=== PATIENT | male | born 1990 | race Caucasian/White ===

== ENCOUNTER 2024-08-31 17:33 | Inpatient (IN) | payer MEDICARE, MEDICAID ==
[2024-08-31] MEDS ORDERED: HALOPERIDOL LACTATE 5 MG/ML 1 ML VIAL IM PRN (17:50)
[2024-08-31] MEDS ORDERED: MAGNESIUM HYDROXIDE 2,400 MG/30 ML CUP PO PRN (17:50)
--- NOTE | 2024-09-01 01:03 | P.CONS ---
History of Present Illness - Reason for Consult Consult date: 09/01/24 medical comanagmeent - Chief Complaint psychosis - History of Present Illness Franco is a 33-year-old male with past medical history of polysubstance use tobacco use and schizophrenia He was in his usual state of health up until he had suicidal ideation. The patient reports that he had stabbed his left wrist. He was treated at [facility]. He had a tendon repair. He was then transferred here after he was medically stabilized. He is currently seen in room 312 in mental health unit. He reports that he has been having auditory hallucinations. He reports polysubstance use and uses heroin cocaine cannabis and methamphetamine. He otherwise is a poor historian at this time and appears to be incoherent with some of the story. There was no current lab work seen on chart review. Review of Systems ROS negative except for HPI Past Medical History Past Medical History: No Reported History History of Any Multi-Drug Resistant Organisms: None Reported Past Surgical History: No Surgical Hx Reported Past Psychological History: Bipolar, Schizophrenia Smoking Status: Vaper Past Alcohol Use History: None Reported Past Drug Use History: Marijuana Medications and Allergies Home Medications Medication Instructions Recorded Confirmed Type Divalproex ER [Depakote ER] 1,000 mg PO BID 30 Days #60 tab 11/10/22 Rx Ibuprofen [Motrin] 600 mg PO Q6HR PRN tab 11/10/22 Rx Nicotine 14Mg/24Hr Patch [Habitrol] 1 patch TRANSDERM DAILY 14 Days 11/10/22 Rx #14 patch Paliperidone [Invega] 6 mg PO HS 30 Days #30 tab 11/10/22 Rx fluPHENAZine decanoate [Prolixin 50 mg IM [id number] #1 each 11/10/22 Rx Decanoate] traZODone HCL [Desyrel] 100 mg PO HS 30 Days #30 tab 11/10/22 Rx Allergies Allergy/AdvReac Type Severity Reaction Status Date / Time No Known Allergies Allergy Verified 10/29/22 03:28 Physical Exam Vitals: Intake and Output 08/31/24 08/31/24 09/01/24 14:59 22:59 06:59 Other: Weight 81 kg General: non toxic, no distress, Derm: warm, dry Head: atraumatic, normocephalic, symmetric Eyes: EOMI, no lid lag, anicteric sclera, pupils equal round reactive to light ENT: Nose and ears atraumatic, no thrush, no pharyngeal erythema Neck: No thyromegaly, no cervical lymphadenopathy, trachea midline, supple Mouth: no lip lesion, mucus membranes moist Cardiovascular: S1S2 reg, no murmur, Lungs: clear to ascultation bilateral, no ronchi, no rales, no wheeze, no accessory muscle use Abdominal: soft, nontender to palpation, no guarding Ext: left forearm in splint Neuro: moving all extremeties psontansouly Psych: calm and coopeartive Assessment and Plan Assessment: #) Schziophrenia with psychosis, primary management as per behvaioral health team. check depakote level #) Polysubstance use- report uses cocaine, heroin, methamaphtime, and cannabis, recommend cessation #) Suicide attempt with wound inflication to left arm, s/p tendon repair. prn acetaminphen #) tobacco use, recommend cessaiton CBC CMP A1c lipid profile TSH urine drug screen and Depakote level pending at the time of this writing
[2024-09-01] MEDS: ACETAMINOPHEN TAB 325 MG TAB PO PRN (04:45)
[2024-09-01] MEDS: LORazepam 1 MG TAB PO PRN (04:45)
[2024-09-01] MEDS: NICOTINE 14MG/24HR PATCH TRANSDERM SCH (08:52)
[2024-09-01] MEDS: IBUPROFEN 600 MG TAB PO PRN (08:54)
[2024-09-01 09:25] LABS: Basophils # (A) 0.07 10*3/uL (0.00-0.10); Basophils % (A) 1.0 %; Eosinophils # (A) 0.16 10*3/uL (0.04-0.35); Eosinophils % (A) 2.2 %; HCT 42.6 % (39.6-50.0); HGB 14.4 g/dL (13.0-17.0); Lymphocytes # (A) 2.94 10*3/uL (0.90-5.00); Lymphocytes % (A) 39.9 %; MCH 33.3 pg (27.0-32.0); MCHC 33.8 g/dL (32.0-37.0); MCV 98.4 fL (80.0-97.0); Monocytes # (A) 0.53 10*3/uL (0.20-1.00); Monocytes % (A) 7.2 %; Neutrophils # (A) 3.63 10*3/uL (1.80-7.70); Neutrophils % (A) 49.3 %; Platelet Count 262 10*3/uL (140-440); RBC 4.33 10*6/uL (4.40-5.60); RDW 12.7 % (11.5-14.5); WBC 7.36 10*3/uL (4.50-10.00)
[2024-09-01 09:40] LABS: ALT 17 U/L (4-49); AST 21 U/L (17-59); African American GFR (CKD) >90 (>60 ml/min/1.73 sqM); Albumin 4.3 g/dL (3.5-5.0); Alkaline Phosphatase 47 U/L (38-126); Anion Gap 11 mmol/L; Blood Urea Nitrogen 12 mg/dL (9-20); Calcium 9.3 mg/dL (8.4-10.2); Carbon Dioxide 27 mmol/L (22-30); Chloride 100 mmol/L (98-107); Glucose 125 mg/dL (74-99); Non-African American GFR(CKD) >90 (>60 ml/min/1.73 sqM); Potassium 4.7 mmol/L (3.5-5.1); Sodium 138 mmol/L (137-145); Total Protein 6.5 g/dL (6.3-8.2)
--- NOTE | 2024-09-01 11:57 | P.HP ---
Psychiatric H&P - . H&P Date: 09/01/24 History & Physical: Allergies Allergy/AdvReac Type Severity Reaction Status Date / Time No Known Allergies Allergy Verified 10/29/22 03:28 Vital Signs Temp 98.2 F 08/31/24 22:16 Pulse 81 08/31/24 22:16 Resp 18 08/31/24 22:16 BP 121/81 08/31/24 22:16 Pulse Ox 98 08/31/24 22:16 FiO2 Intake & Output 08/31/24 09/01/24 09/01/24 18:59 06:59 18:59 Weight 81 kg 82.4 kg Dictation was produced using [employer] dictation software. Please excuse any grammatical, word or spelling errors. IDENTIFYING DATA: Patient is a 33 years old male presented from [facility] after suicidal attempt via cutting his wrist in context of medication noncompliance HPI: Patient presented to the hospital as a transfer from [facility], he was presented there on 08/28 after stabbing self in the left arm, having auditory hallucination, stopped using his medication 1 week ago. Reported insomnia, possible SI, patient is careless, detached about his wound. He had surgery on the wrist on 08/30, he has a soft volar splint he has a history of multiple suicide attempt. Per petition " the patient remains psychotic, he continues to hear voices after presenting to the ER following a deep laceration to his left wrist and attempt to escape the voices. Patient require further psychiatric evaluation and treatment." Per clinical certification " patient presented to the ED status post deep cut to left wrist. He states that he did so he could hear himself again. Patient states that the voices he is hearing are getting louder, making him upset and unable to think straight. He states that he stopped taking his psychotropic medication approximately 1 week prior to his arrival to the ED. Upon evaluation in the unit the patient was in his room, agreed to speak with the appeals writer in the office. He states that he was thinking about cutting himself, and he went too deep, states that he put a towel over it, and asked his friend to call 911. States that "just tired of life, people are not nice to me." States that he has been taking mediations for 15 yrs, and has been struggling with drugs, weed and alcohol, states that he has been using cocaine, meth, and heroin a week or so ago. States that "I don't see that as an issue since I'm not seeking the drugs." States that "I know that you are working on your PHD and I'll answer all of your questions." States that his mood is "strong," admitted to feeling down, sad, depressed for over 20 yrs, claims feeling hopeless, helpless and worthless, he denied any current SI/HI or self harm. Reported that he tried to end his life before 5-10 times, "just tired or high on drugs." He tried OD, robes, cars, swimming till he could not find a way out. He states that it started when he was a kid, and last attempt was cutting his wrist prior to this admission, he states that "there is an katiuska watching over me that is why I'm still here." States that "I think the [facility] will take over heaven." States that his sleep has been good, claims 5-8 hours of sleep at night, appetite is good. Pt admitted to racing thoughts, flights of ideas, risky behaviors, he is religiously preoccupied, has tangential thought process, illogical and non sensecal. States that he is "keeping my ear to the wind, when I ask the spirit, they give me an answer." Admitted to seeing and talking to spirit since he was a child, he denied seeing or hearing them now. States that he can build the spirit. States that he had voices when he injured himself, states that the voices told him that "you have a choice if you want to cut yourself" Patient admits to using different types of substances like cocain, meth, opiate with last use about a week or so ago, states that "I use one line few times a day". Admitted to using tobacco 1-2 PPD, reported using cannabis at times. Denied using alcohol. PAST PSYCHIATRIC HISTORY: - Inpatient Hospitalizations: Per chart review patient was hospitalized at [facility] in 10/2022. States that he was hospitalized 12-15 times in the past, last hospitalization was at [facility] couple of months ago - Outpatient Care: Reported that he follows up with Kianna Dejesus, was with [facility] in the past - Current Psychotropics: Patient reported that his current home medication i ncludes Buspar 5 mg tid, Depakote 500 mg po bid (patient requested the Depakene syrup), Zyprexa 15 mg po hs, Vilazodone 20 mg hs. States that he has been compliant with his medications - Prior Psychotropics/Therapy: Prolixin decanoate 50 mg IM 14 days unconfirmed dates, Depakote ER 1000 mg p.o. twice daily, Trileptal 300 mg 2 twice daily, Invega 6 mg p.o. twice daily - Prior Psychiatric diagnoses: Schizoaffective disorder, bipolar type, cannabis use disorder, nicotine use disorder, medication noncompliance - Suicidal Attempts: multiple times PMH: as per ER note ALLERGIES: as per EMR CHEMICAL DEPENDENCY HISTORY: as per HPI FAMILY PSYCHIATRIC/SUBSTANCE USE HISTORY: denies SOCIAL HISTORY: Patient was born and raised in [place], single, never , has one daughter 10 yo, he is on disability for mental illness, pay for child support, lives by himself, has no support, states that "even my mom is a liar." Reported being in detention 3 times in the past, denied having access to firearms, or guns. MENTAL STATUS EXAM: General Appearance: Patient appears to be stated age is alert, directable, and attempts to cooperate. Patient appears to have poor hygiene and grooming. He has a soft splint over his right forearm. Behavior: Patient is seated without any agitated behavior. Speech: Patient's speech is fluent and nonpressured. Mood/Affect: Patient reports their mood is "fine strong" affect is congruent and constricted. Suicidality/Homicidality: Patient denies having any homicidal ideation intent or plan. Denies any suicidal ideations intent or plan Perceptions: Patient reported seeing and hearing spirits which he has been having for a long time since he was a child Though content/process: There is no evidence of any delusional thought content and thought process is linear and goal-directed. Memory and concentration: AOX3, grossly intact for the purposes of this session. Judgment and insight: poor STRENGTHS/WEAKNESSES: strength is that patient is resilient. Weakness is that patient has poor judgment and is impulsive INTELLECT: average IMPRESSIONS: -Schizophrenia spectrum and other unspecified psychotic disorder -Rule out schizoaffective disorder versus bipolar disorder with psychotic feature, versus MDD with psychotic features, vs substance-induced -Anxiety disorder, unspecified -Cannabis use disorder -Nicotine use disorder -Cocaine use disorder -Opiate use disorder PLAN: -Patient is admitted under voluntary status to [facility] for stabilization of psychiatric symptoms and safety. Patient has signed adult voluntary form and medication consent and is placed in patient's chart. Initially the patient came in with petition and clinical certification however he agreed to follow our treatment recommendation and agreed to take medication. -Medications : -Start Invega 3 mg p.o. at bedtime (may consider switching to JAMES prior to discharge, patient agreed with the plan) -Hold Zyprexa -Continue Depakene 500 mg p.o. twice daily (patient would prefer Depakene syrup) -Continue BuSpar 5 mg p.o. 3 times daily -Will hold Vilazodone till we get outpatient records -Ativan and Haldol PRN for agitation/aggression -Patient was counselled on substance abuse and desired to cut back on use -Tan offer patient subtance use rehab, however patient does not consider rehab at this time, will continue to encourage patient to do so in the future -Patient was informed of the risks, benefits and side effects of the medication and patient verbally consented to taking the medications. Patient signed med consent form and was placed in chart. -Internal Medicine consult to perform medical evaluation and physical. -NRT - nicotine patch -SW on board for discharge planning. Encourage patient to participate in groups to work on coping skills. Collateral will be helpful from his outpatient team as well as his mother. 09/01/24 09:05 09/01/24 10:52
[2024-09-01 13:36] LABS: Cholesterol 124.00 mg/dL (0.00-200.00); HDL Cholesterol 35.30 mg/dL (40.00-60.00); LDL Cholesterol,Calculated 55.5 mg/dL (0.0-131.0); Triglycerides 166.00 mg/dL (0.00-149.00); VLDL Calculation 33.20 mg/dL (5.00-40.00)
[2024-09-01] MEDS: MAG HYDROX/AL HYDROX/SIMETH 355 ML BOTTLE PO PRN (14:22)
[2024-09-01] MEDS: PALIPERIDONE 3 MG TAB.ER.24 PO SCH (20:01)
[2024-09-01] MEDS: VALPROIC ACID ORAL SOLN 250 MG/5 ML CUP PO SCH (20:01)
--- NOTE | 2024-09-02 13:47 | P.PN ---
Progress Note - Text Progress Note Date: 09/02/24 Dictation was produced using [employer] dictation software. Please excuse any grammatical, word or spelling errors. Interval history: Patient was seen in the hallway and was directable and agreeable to speak with the racebook writer in the office for psychiatric follow-up. The patient states that he is doing well, states that "I'm smart enough for my own good, I'm the only one that can explain things." Patient seems to have grandiose behavior today. States that he slept well last night, reported that he had some dreams however he could not remember it. He admitted to good appetite. States that depression and anxiety are at the moderate side, he rated depression at 6/10, and anxiety at 5/10. He denied any current SI/HI or self harm, states that every time he look at his arm he get that fear of doing it again. He denied any current AVH, states that "no difference than an intelligent person would." He has been taking his medications, he denied any current side effects, denied any muscle stiffness, rigidity, abnormal movement, or delayed. States that he is in contact with his family, reported that he was talking to his mother prior to coming to the office, reported that things are going well with his mom. MENTAL STATUS EXAM: General Appearance: Patient appears to be stated age is alert, directable, and attempts to cooperate. Patient appears to have poor hygiene and grooming. He has a soft splint over his right forearm. Behavior: Patient is seated without any agitated behavior. He has grandiose behavior today, was talking about how smart he is and how he is different from other people. Speech: Patient's speech is fluent and nonpressured. Mood/Affect: Patient reports their mood is "good" affect is congruent and constricted. Suicidality/Homicidality: Patient denies having any homicidal ideation intent or plan. Denies any suicidal ideations intent or plan Perceptions: Patient denied any current auditory or visual hallucination today however seem to be conservative and guarded, paranoid at time with grandiose behavior Though content/process: There is no evidence of any delusional thought content and thought process is linear and goal-directed. Memory and concentration: AOX3, grossly intact for the purposes of this session. Judgment and insight: poor IMPRESSIONS: -Schizophrenia spectrum and other unspecified psychotic disorder -Rule out schizoaffective disorder versus bipolar disorder with psychotic feature, versus MDD with psychotic features, vs substance-induced -Anxiety disorder, unspecified -Cannabis use disorder -Nicotine use disorder -Cocaine use disorder -Opiate use disorder Assessment/Plan: -Patient continues to meet criteria for inpatient psychiatric admission for symptom stabilization and safety. Patient was admitted under voluntary status to [facility] for stabilization of psychiatric symptoms and safety. -Medications : -Continue Invega 3 mg p.o. at bedtime (may consider increasing the dose tomorrow with a plan to switching to JAMES prior to discharge, patient agreed with the plan) -Hold Zyprexa -Continue Depakene syrup 500 mg p.o. twice daily -Continue BuSpar 5 mg p.o. 3 times daily -Will hold Vilazodone till we get outpatient records -Ativan and Haldol PRN for agitation/aggression -Patient was informed of the risks, benefits and side effects of the medication and patient verbally consented to taking the medications, he denied any current side effects, denied any muscle stiffness, rigidity, abnormal movement, or drooling. -SW on board for discharge planning. Encourage patient to participate in groups to work on coping skills, encouraged to participate in the milieu. Collateral will be helpful from his outpatient team as well as his mother.
--- NOTE | 2024-09-03 11:43 | P.PN ---
Progress Note - Text Progress Note Date: 09/03/24 Interval History: Patient was seen wandering the hallways and was directable and agreeable to sp jose with television writer in the office. He displays some nondenominational preoccupation, grandiosity. He did admit to cutting himself due to experiencing "invasive suicidal ideations" at that time, he admitted to also having auditory hallucinations however friends performed an exorcism and he has no longer heard any voices. Patient does not feel as though ongoing substance use including methamphetamines, cocaine, and heroin could be contributing to his current symptoms, stating that he "got the good stuff that is not laced with anything and is pure." He displayed poor insight into his need for treatment, does not feel as though he needs medications however is agreeable with taking them. He states his lease is up at his place in the [place] and he plans on not renewing this and will be homeless. Patient does admit to suicidal ideations, no plan or intent. At this time patient denies any homicidal ideations, intent or plan. Patient denies any auditory, visual hallucinations and denies any paran oia or delusions. Patient denies any side effects from the medications and has been compliant with meds. Mental Status Exam: General Appearance: Patient appears to be stated age is alert, directable, and cooperative. He has a cast on his left arm Behavior: Patient is calmly seated without any agitated behavior. Speech: Patient's speech is fluent and nonpressured. Mood/Affect: Mood is improving mildly, affect is congruent and constricted. Suicidality/Homicidality: Patient denies having any homicidal ideation intent or plan. Patient reports suicidal ideations Perceptions: Patient denies any visual hallucinations and denies any auditory hallucinations Though content/process: There is evidence of nondenominational preoccupation, grandiose delusions Memory and concentration: AOX3, grossly intact for the purposes of this session Judgment and insight: Improving mildly Assessment Psychosis unspecified Rule out substance-induced psychotic disorder versus schizoaffective disorder bipolar type Stimulant use disorder Cannabis use disorder Opiate use disorder Nicotine dependence Plan: -Patient continues to meet criteria for inpatient psychiatric admission for symptom stabilization and safety. Patient has signed adult voluntary form and medication consent and was placed in patient's chart. -Medications: Increase Invega to 6 mg at bedtime for psychosis, increase BuSpar to 10 mg 3 times daily for anxiety, continue Depakene 500 mg twice daily for mood stabilization -When necessary Ativan and Haldol for agitation/aggression. -Labs: Reviewed -NRT - nicotine patch -SW on board for discharge planning. Encouraged the patient to participate in milieu. Anticipate discharge in ~2-3 days
[2024-09-03] MEDS: PALIPERIDONE 6 MG TAB.ER.24 PO SCH (20:46)
--- NOTE | 2024-09-04 12:22 | P.PN ---
Progress Note - Text Progress Note Date: 09/04/24 Interval History: Patient was seen in group and was directable and agreeable to speak with caption writer in the office. Patient has been attending groups. He reports improvement in terms of his anxiety with increasing the BuSpar. He states he is sleeping and eating well. He inquires about discharge and is on board with returning home tomorrow, states that he lives alone and that his mother will be able to pick him up. At this time patient denies any suicidal or homicidal ideations, intent or plan. Patient denies any auditory, visual hallucinations and denies any paranoia or delusions. Patient denies any side effects from the medications and has been compliant with meds. Mental Status Exam: General Appearance: Patient appears to be stated age is alert, directable, and cooperative. He has a cast on his left arm Behavior: Patient is calmly seated without any agitated behavior. Speech: Patient's speech is fluent and nonpressured. Mood/Affect: Mood is improving mildly, affect is congruent and constricted. Suicidality/Homicidality: Patient denies having any suicidal or homicidal id eation intent or plan. Perceptions: Patient denies any visual hallucinations and denies any auditory hallucinations Though content/process: There is no evidence of any delusional thought content and thought process is linear and goal-directed. Memory and concentration: AOX3, grossly intact for the purposes of this session Judgment and insight: Improving mildly Assessment Psychosis, unspecified Rule out substance-induced psychotic disorder versus schizoaffective disorder, bipolar type Stimulant use disorder Cannabis use disorder Opiate use disorder Nicotine dependence Plan: -Patient continues to meet criteria for inpatient psychiatric admission for symptom stabilization and safety. Patient has signed adult voluntary form and medication consent and was placed in patient's chart. -Medications: Continue Invega 6 mg at bedtime for psychosis, BuSpar 10 mg 3 times daily for anxiety, Depakene 500 mg twice daily for mood stabilization -When necessary Ativan and Haldol for agitation/aggression. -Labs: Reviewed, Depakote level ordered for tomorrow morning -NRT - nicotine patch -SW on board for discharge planning. Encouraged the patient to participate in milieu. Anticipate discharge home alone tomorrow
[2024-09-04 22:41] VITALS: RESP 18; TEMP 97.8
[2024-09-05 08:17] VITALS: BP 120/76; PULSE 92
--- NOTE | 2024-09-05 12:51 | P.DS ---
Providers Date of admission: 08/31/24 22:14 Expected date of discharge: 09/05/24 Attending physician: Sharyn Rodriguez MD Consults: 08/31/24 17:50 Consult Physician Routine Consulting Provider: Miladys Physician Consult Reason/Comments: H & P w/medical mgmt Do you want consulting provider notified?: Yes, Notify in am Primary care physician: Stated None - Discharge Diagnosis(es) (1) Psychosis Current Visit: Yes Status: Acute Priority: High (2) Stimulant use disorder Current Visit: Yes Status: Acute Priority: High (3) Opioid use disorder Current Visit: Yes Status: Acute Priority: High (4) Cannabis use disorder Current Visit: Yes Status: Acute Priority: Low (5) Nicotine dependence Current Visit: Yes Status: Acute Priority: Low Hospital Course: Admission HPI: Admission note was completed by Dr. Magdaleno " Patient presented to the hospital as a transfer from [facility], he was presented there on 08/28 after stabbing self in the left arm, having auditory hallucination, stopped using his medication 1 week ago. Reported insomnia, possible SI, patient is careless, detached about his wound. He had surgery on the wrist on 08/30, he has a soft volar splint he has a history of multiple suicide attempt. Per petition " the patient remains psychotic, he continues to hear voices after presenting to the ER following a deep laceration to his left wrist and attempt to escape the voices. Patient require further psychiatric evaluation and treatment." Per clinical certification " patient presented to the ED status post deep cut to left wrist. He states that he did so he could hear himself again. Patient states that the voices he is hearing are getting louder, making him upset and unable to think straight. He states that he stopped taking his psychotropic medication approximately 1 week prior to his arrival to the ED. Upon evaluation in the unit the patient was in his room, agreed to speak with the keno writer/runner in the office. He states that he was thinking about cutting himself, and he went too deep, states that he put a towel over it, and asked his friend to call 911. States that "just tired of life, people are not nice to me." States that he has been taking mediations for 15 yrs, and has been struggling with drugs, weed and alcohol, states that he has been using cocaine, meth, and heroin a week or so ago. States that "I don't see that as an issue since I'm not seeking the drugs." States that "I know that you are working on your PHD and I'll answer all of your questions." States that his mood is "strong," admitted to feeling down, sad, depressed for over 20 yrs, claims feeling hopeless, helpless and worthless, he denied any current SI/HI or self harm. Reported that he tried to end his life before 5-10 times, "just tired or high on drugs." He tried OD, robes, cars, swimming till he could not find a way out. He states that it started when he was a kid, and last attempt was cutting his wrist prior to this admission, he states that "there is an katiuska watching over me that is why I'm still here." States that "I think the [employer] will take over hekeegann." States that his sleep has been good, claims 5-8 hours of sleep at night, appetite is good. Pt admitted to racing thoughts, flights of ideas, risky behaviors, he is religiously preoccupied, has tangential thought process, illogical and non sensecal. States that he is "keeping my ear to the wind, when I ask the spirit, they give me an answer." Admitted to seeing and talking to spirit since he was a child, he denied seeing or hearing them now. States that he can build the spirit. States that he had voices when he injured himself, states that the voices told him that "you have a choice if you want to cut yourself" Patient admits to using different types of substances like cocain, meth, opiate with last use about a week or so ago, states that "I use one line few times a day". Admitted to using tobacco 1-2 PPD, reported using cannabis at times. Denied using alcohol." Hospital course: Upon admission to the unit patient was directable and agreeable to commence treatment and signed adult voluntary form. Patient got along well with other patients on the unit and followed unit protocol. Patient was compliant with the medications and denied any side effects throughout hospital course. Patient was started on Invega and this was increased to 6 mg at bedtime for psychosis, BuSpar 10 mg 3 times daily for anxiety, Depakene 500 mg twice daily for mood stabilization with Depakote level returning at 36.3. Patient spoke of his stressors and engaged in therapy both group and individual. Patient was also seen by medical team for history and physical exam. Patient arm is in a cast and must be removed in 5 weeks. Throughout the course of the hospitalization patient gradually improved with regards to mood, anxiety, sleep and became more future oriented with improved insight and judgment. On the day of discharge patient denied any suicidal or homicidal ideations intent or plan denied any auditory or visual hallucinations. The patient denied any access to guns or weapons. Patient denied any paranoia and did not endorse any delusions. Patient does have a significant history of substance abuse and was counseled on abstaining from all substances including alcohol and marijuana. Patient was offered however declined inpatient substance-abuse rehab. Patient was also counseled on the medications and need for regular compliance and was encouraged to follow-up with their outpatient appointment for mental health and also for primary care. Prior to discharge a family meeting will be arranged by social work supervisor to answer any questions and ensure safety upon discharge including making sure that guns/weapons are either removed from the home or locked away. Patient be discharged home with mother will follow-up with Kianna Dejesus in [facility] Mental status exam: General Appearance: Patient appears to be stated age is alert, pleasant, and cooperative. Patient is in no acute distress and has improved hygiene and grooming Behavior: Patient is calmly seated without any agitated behavior. Speech: Patient's speech is fluent and nonpressured. Mood/Affect: Patient reports their mood is "better", affect is congruent and euthymic. Suicidality/Homicidality: Patient denies having any suicidal or homicidal ideation intent or plan. Perceptions: Patient denies any auditory or visual hallucinations. Though content/process: There is no evidence of any delusional thought content and thought process is linear and goal-directed. More future oriented Memory and concentration: AOX3, grossly intact for the purposes of this session. Can spell "WORLD" backwards correctly. Judgment and insight: Fair Impression: Psychosis, unspecified Rule out substance-induced psychotic disorder versus schizoaffective disorder Stimulant use disorder Opioid use disorder Cannabis use disorder Nicotine dependence Plan: -Continue with discharge today as patient has improved and stabilized psychiatrically and is not currently an imminent threat to themself and/or others. Patient will remain at chronically elevated risk for harm to self and/or others due to their impulsivity and substance abuse. -Continue medications: Invega 6 mg at bedtime, BuSpar 10 mg 3 times daily, Depakene 500 mg twice daily -Patient was counseled on the need for medication compliance and appropriate follow-up at mental health and also primary care for medical issues. Patient verbalized understanding and agreed. -Social work to help coordinate patients discharge today arrange for and conduct family meeting to ensure safety upon discharge and answer any questions/concerns. also to ensure safe home environment that guns/weapons are either removed from the home or locked away. Social work also to arrange for patients follow up appointments with Kianna Dejesus for psychiatric care along with follow up with primary care provider. -Patient counseled on abstaining from recreational drugs and marijuana and alcohol. Was informed/educated on the adverse effects on their physical and mental health. Patient verbally agreed and understood. Patient was offered substance abuse treatment however declined at this time. -Patient was instructed to return to the hospital or seek immediate medical care if their psychiatric or medical symptoms do worsen or reoccur. Abnormal Labs 09/01/24 09/01/24 09/01/24 08:34 08:34 08:34 RBC 4.33 L MCV 98.4 H MCH 33.3 H Glucose 125 H Triglycerides 166.00 H HDL Cholesterol 35.30 L Allergies Allergy/AdvReac Type Severity Reaction Status Date / Time No Known Allergies Allergy Verified 10/29/22 03:28 Vital Signs Temp 97.8 F 09/04/24 21:00 Pulse 92 09/05/24 09:00 Resp 18 09/05/24 09:00 BP 120/76 09/05/24 09:00 Pulse Ox 98 09/05/24 09:00 FiO2 Patient Condition at Discharge: Stable Plan - Discharge Summary Discharge Rx Participant: Yes New Discharge Prescriptions: New Valproic Acid Oral Soln [Depakene Syrup] 500 mg PO BID 30 Days #600 ml Nicotine 14Mg/24Hr Patch [Habitrol] 1 patch TRANSDERM DAILY 30 Days #30 patch Paliperidone [Invega] 6 mg PO HS 30 Days #30 tab busPIRone HCl [Buspar] 10 mg PO TID 30 Days #90 tab Continue Nicotine 14Mg/24Hr Patch [Habitrol] 1 patch TRANSDERM DAILY 14 Days #14 patch Paliperidone [Invega] 6 mg PO HS 30 Days #30 tab Discontinued Ibuprofen [Motrin] 600 mg PO Q6HR PRN tab PRN Reason: Moderate Pain (Scale 4 To 6) traZODone HCL [Desyrel] 100 mg PO HS 30 Days #30 tab fluPHENAZine decanoate [Prolixin Decanoate] 50 mg IM [id number] #1 each Divalproex ER [Depakote ER] 1,000 mg PO BID 30 Days #60 tab Discharge Medication List Nicotine 14Mg/24Hr Patch [Habitrol] 1 patch TRANSDERM DAILY 14 Days #14 patch 11/10/22 [Rx] Paliperidone [Invega] 6 mg PO HS 30 Days #30 tab 11/10/22 [Rx] Nicotine 14Mg/24Hr Patch [Habitrol] 1 patch TRANSDERM DAILY 30 Days #30 patch 09/05/24 [Rx] Paliperidone [Invega] 6 mg PO HS 30 Days #30 tab 09/05/24 [Rx] Valproic Acid Oral Soln [Depakene Syrup] 500 mg PO BID 30 Days #600 ml 09/05/24 [Rx] busPIRone HCl [Buspar] 10 mg PO TID 30 Days #90 tab 09/05/24 [Rx] Follow up Appointment(s)/Referral(s): [facility] [NON-STAFF] - 1 Week Patient Instructions/Handouts: How to Stop Smoking (DC), Schizoaffective Disorder (DC), Cannabis Abuse (DC) Activity/Diet/Wound Care/Special Instructions: [facility] Discharge Info Avoid the use of street drugs and alcohol. Take all medications as prescribed. When you are in need of refills on your medications, please contact your outpatient medical provider and/or outpatient psychiatrist. Please go to your scheduled outpatient appointments for aftercare treatment. If symptoms return or become worse, call the crisis line at or and/or visit the nearest emergency room for assistance. National Suicide and Crisis Lifeline - call or text 519.Medical physician recommends to follow up outpatient in 4-6 weeks to have thyroid levels checked again. Recommendations to have an EMG outpatient on bilateral upper extremities for probable bilateral carpal tunnel. Discharge Disposition: HOME SELF-CARE
== END 2024-09-05 12:58 | disposition home or self-care (01) | DRG 885 ==
LOC: 3MHU 22:14
PROVIDERS: ADMIT Psychiatry & Neurology Psychiatry; ATTEND Psychiatry & Neurology Psychiatry
DX: F29 Unspecified psychosis not due to a substance or known physiological condition (principal); Z91.148 Patient's other noncompliance with medication regimen for other reason; R45.851 Suicidal ideations; F11.10 Opioid abuse, uncomplicated; F32.A Depression, unspecified; F15.10 Other stimulant abuse, uncomplicated; F14.10 Cocaine abuse, uncomplicated; F12.10 Cannabis abuse, uncomplicated; F17.200 Nicotine dependence, unspecified, uncomplicated; S61.519D Laceration without foreign body of unspecified wrist, subsequent encounter; G47.00 Insomnia, unspecified; F41.9 Anxiety disorder, unspecified; Z91.51 Personal history of suicidal behavior; Z79.899 Other long term (current) drug therapy; Z71.51 Drug abuse counseling and surveillance of drug abuser
CPT/HCPCS: 80053; 80061; 80164; 83036; 84443; 85025